=== PATIENT | male | born 1990 | race Hispanic/Latino ===

== ENCOUNTER 2019-01-18 10:35 | Emergency (ER) | payer SELFPAY ==
--- NOTE | 2019-01-18 11:25 | RAD ---
Radiograph left first digit 3 views: HISTORY: Laceration injury to left thumb FINDINGS: There is a soft tissue defect distal to the distal tuft. There is no fracture or dislocation. IMPRESSION: 1. Acute, traumatic soft tissue injury at distal tip of left first digit. 2. No osseous abnormality.
[2019-01-18] MEDS ORDERED: Lidocaine 1% (PF) 30 ML VIAL ONE (12:12)
[2019-01-18] MEDS ORDERED: Bupivacaine 0.5% 10 ML VIAL ONE (12:16)
[2019-01-18] MEDS ORDERED: Adacel (T-DAP) 0.5 ML SYRINGE ONE (12:42)
[2019-01-18] MEDS ORDERED: HYDROcodone/Acetaminophen 7.5/325 mg Tablet ONE (12:42)
== END 2019-01-18 13:59 | disposition home or self-care (01) ==
LOC: ERS 10:35
DX: S68.022A Partial traumatic metacarpophalangeal amputation of left thumb, initial encounter (principal); Z23 Encounter for immunization; F17.210 Nicotine dependence, cigarettes, uncomplicated; E03.9 Hypothyroidism, unspecified; W26.0XXA Contact with knife, initial encounter
CPT/HCPCS: 90471; 90715; J2001; J3490

== ENCOUNTER 2019-11-15 10:01 | Outpatient (CLI) | payer OTHER ==
--- NOTE | 2019-11-15 11:11 | RAD ---
LUMBAR SPINE 3 VIEWS: HISTORY: M54.3, sciatica. M54.5, low back pain. COMPARISON: None. FINDINGS: There is moderate degenerative disk space height loss at L5-S1 disk-osteophyte complex and 2 mm retro listhesis. No acute fracture. Moderate facet arthropathy at L5-S1. No abnormal translation with flexion or extension. IMPRESSION: Degenerative change at L5-S1 without abnormal translation with flexion or extension. POS: HOME
--- NOTE | 2019-11-15 11:25 | MRI ---
MRI LUMBAR SPINE: DATE: 11/15/2019. PROVIDED CLINICAL HISTORY: Low back pain and left-sided radiculopathy. FINDINGS: Five lumbar vertebral bodies are assumed. Lumbar alignment appears normal. Vertebral body heights a ppear preserved. Intervertebral disk space heights appear preserved. No focal concerning regional m arrow signal abnormality. The conus medullaris is normal in signal and terminates at an appropriate level. The visualized extraspinal soft tissues appear unremarkable. At L-2, there is no significant central canal or foraminal narrowing apparent. At L2-3, there is no significant central canal or foraminal narrowing apparent. At L3-4, there is no significant central canal or foraminal narrowing apparent. At L4-5, there is mild bilateral facet arthritis without significant central canal or foraminal narro wing apparent. At L5-S1, there is a central disk herniation which approximates and potentially displaces mildly shayna ersing the left L1 nerve root. There is mild flattening of the left ventral thecal sac. This is sup erimposed upon a broad-based disk bulge and accompanying osteophytes, which produce at least moderate left and mild right foraminal narrowing. There is displacement of the exited right L5 nerve root in its lateral region due to disk bulge. IMPRESSION: Disk and facet degenerative change at L5-S1 as described. POS: [facility]
== END 2019-11-15 10:02 | disposition home or self-care (01) ==
LOC: TBSIIMAG 10:01
PROVIDERS: ATTEND Neurological Surgery
DX: M54.30 Sciatica, unspecified side (principal); M54.5 Low back pain; M47.817 Spondylosis without myelopathy or radiculopathy, lumbosacral region
CPT/HCPCS: 72100; 72148

== ENCOUNTER 2021-04-01 12:52 | Outpatient (CLI) | payer OTHER | END 2021-04-01 12:53 | disposition home or self-care (01) | LOC: TBSIIMAG 12:52 | PROVIDERS: ATTEND Neurological Surgery | DX: M54.5 Low back pain (principal); M51.37 Other intervertebral disc degeneration, lumbosacral region; M47.817 Spondylosis without myelopathy or radiculopathy, lumbosacral region | CPT/HCPCS: 72100; 72148 ==

== ENCOUNTER 2021-06-16 17:28 | Emergency (ER) | payer SELFPAY ==
[2021-06-16] MEDS ORDERED: Lidocaine Viscous Sol 2% 15 ml UD Cup ONE (17:57)
[2021-06-16] MEDS ORDERED: Mag-Al 1200 mg/1200 mg/30 ML UDCUP ONE (17:57)
[2021-06-16] MEDS ORDERED: Ondansetron PF 4 MG/2 ML Vial ONE (17:57)
[2021-06-16 18:25] LABS: #Lymphocytes 0.6 thou/uL (1.20-3.40); #Monocytes 0.3 thou/uL (0.11-0.59); #Neutrophils 9.6 thou/uL (1.40-6.50); %Basophils 0.1 % (0.0-1.0); %Eosinophils 0.2 % (0.0-10.0); %Monocytes 3.3 % (0.0-10.0); %Neutrophils 90.4 % (42.0-75.0); Mean Corpuscular Hemoglobin 34.1 pg (27.0-31.0); Mean Corpuscular Volume 97.3 fL (78.0-98.0); Mean Platelet Volume 6.9 fL (7.4-10.4); Platelet Count 252 thou/uL (130-400); RBC Distribution Width 11.6 % (11.5-14.5); Red Blood Cell (RBC) Count 5.87 mill/uL (4.70-6.10); White Blood Cell (WBC) Count 10.6 thou/uL (4.8-10.8)
[2021-06-16 18:44] LABS: ALT (SGPT) 26 U/L (8-55); AST (SGOT) 25 U/L (5-34); Albumin 5.6 g/dL (3.5-5.0); Alkaline Phosphatase 120 U/L (40-110); Anion Gap 21 mmol/L (10-20); BUN (Urea Nitrogen) 16 mg/dL (8.9-20.6); Bilirubin, Total 0.9 mg/dL (0.2-1.2); Calc. Creatinine Clearance 0 mL/min (70-130); Calcium 11.3 mg/dL (7.8-10.44); Carbon Dioxide 26 mmol/L (22-29); Chloride 94 mmol/L (98-107); Globulin 4.4 g/dL (2.4-3.5); Glucose 142 mg/dL (70-105); Lipase 9 U/L (8-78); Potassium 4.2 mmol/L (3.5-5.1); Sodium 137 mmol/L (136-145)
[2021-06-16] MEDS ORDERED: Haloperidol Lactate 5 MG/ML VIAL ONE (19:06)
[2021-06-16] MEDS ORDERED: diphenhydrAMINE 50 MG/ML VIAL ONE (19:23)
== END 2021-06-16 20:36 | disposition home or self-care (01) ==
LOC: ERS 17:28
DX: K29.20 Alcoholic gastritis without bleeding (principal); R11.10 Vomiting, unspecified; E03.9 Hypothyroidism, unspecified; F17.210 Nicotine dependence, cigarettes, uncomplicated
CPT/HCPCS: 80053; 83690; 85025; 96374; 96375; J1200; J1630; J2405

== ENCOUNTER 2021-09-07 17:54 | Emergency (ER) | payer SELFPAY ==
[2021-09-07] MEDS ORDERED: Mag-Al 1200 mg/1200 mg/30 ML UDCUP ONE (18:17)
[2021-09-07] MEDS ORDERED: Lidocaine Viscous Sol 2% 15 ml UD Cup ONE (18:17)
[2021-09-07] MEDS ORDERED: Pantoprazole 40 MG VIAL ONE ×2 (18:17→18:35)
[2021-09-07] MEDS ORDERED: Haloperidol Lactate 5 MG/ML VIAL ONE (18:17)
[2021-09-07 18:44] LABS: #Basophils 0.1 thou/uL (0.0-0.2); #Lymphocytes 1.1 thou/uL (1.20-3.40); #Monocytes 0.6 thou/uL (0.11-0.59); #Neutrophils 8.8 thou/uL (1.40-6.50); %Basophils 0.6 % (0.0-1.0); %Eosinophils 0.2 % (0.0-10.0); %Lymphocytes 10.4 % (21.0-51.0); %Monocytes 5.5 % (0.0-10.0); %Neutrophils 83.4 % (42.0-75.0); Hemoglobin 17.3 g/dL (14.0-18.0); Mean Corpuscular HGB CONC 33.2 g/dL (32.0-36.0); Mean Corpuscular Hemoglobin 33.1 pg (27.0-31.0); Mean Corpuscular Volume 99.8 fL (78.0-98.0); Platelet Count 250 thou/uL (130-400); Red Blood Cell (RBC) Count 5.22 mill/uL (4.70-6.10); White Blood Cell (WBC) Count 10.5 thou/uL (4.8-10.8)
[2021-09-07 18:57] LABS: ALT (SGPT) 27 U/L (8-55); AST (SGOT) 25 U/L (5-34); Albumin 5.6 g/dL (3.5-5.0); Alkaline Phosphatase 96 U/L (40-110); Anion Gap 17 mmol/L (10-20); BUN (Urea Nitrogen) 16 mg/dL (8.9-20.6); Bilirubin, Total 0.9 mg/dL (0.2-1.2); CK (CPK) 122 U/L (30-200); Calc. Creatinine Clearance 0 mL/min (70-130); Calcium 10.7 mg/dL (7.8-10.44); Carbon Dioxide 28 mmol/L (22-29); Chloride 104 mmol/L (98-107); Globulin 3.2 g/dL (2.4-3.5); Glucose 137 mg/dL (70-105); Lipase Less than 4 U/L (8-78); Magnesium 2.2 mg/dL (1.6-2.6); Potassium 3.8 mmol/L (3.5-5.1); Protein, Total 8.8 g/dL (6.0-8.3); Sodium 145 mmol/L (136-145)
== END 2021-09-07 20:51 | disposition home or self-care (01) ==
LOC: ERS 17:54
DX: R11.2 Nausea with vomiting, unspecified (principal); R10.816 Epigastric abdominal tenderness; E03.9 Hypothyroidism, unspecified; F17.210 Nicotine dependence, cigarettes, uncomplicated; Z79.899 Other long term (current) drug therapy
CPT/HCPCS: 36415; 80053; 82550; 83690; 83735; 84484; 85025; 96374; 96375; C9113; J1630

== ENCOUNTER 2023-07-31 08:06 | Emergency (ER) | payer OTHER, SELFPAY ==
[2023-07-31] MEDS ORDERED: Ondansetron PF 4 MG/2 ML Vial ONE (08:19)
[2023-07-31] MEDS ORDERED: Pantoprazole 40 MG VIAL ONE (08:20)
[2023-07-31 08:55] LABS: #Basophils 0.1 thou/uL (0.0-0.2); #Eosinphils 0.4 thou/uL (0.0-0.7); #Monocytes 1.1 thou/uL (0.11-0.59); #Neutrophils 10.6 thou/uL (1.40-6.50); %Basophils 0.6 % (0.0-1.0); %Eosinophils 2.6 % (0.0-10.0); %Lymphocytes 14.9 % (21.0-51.0); %Monocytes 7.5 % (0.0-10.0); %Neutrophils 73.6 % (42.0-75.0); Hematocrit 54.5 % (42.0-52.0); Hemoglobin 18.9 g/dL (14.0-18.0); Mean Corpuscular HGB CONC 34.7 g/dL (32.0-36.0); Mean Corpuscular Volume 95.1 fl (78.0-98.0); Mean Platelet Volume 8.7 fL (7.4-10.4); Platelet Count 346 10x3/uL (130-400); RBC Distribution Width 12.9 % (11.5-14.5); Red Blood Cell (RBC) Count 5.73 mill/uL (4.70-6.10); White Blood Cell (WBC) Count 14.3 10x3/uL (4.8-10.8)
[2023-07-31] MEDS ORDERED: Haloperidol Lactate 5 MG/ML VIAL ONE ×2 (09:20→10:18)
[2023-07-31 09:33] LABS: ALT (SGPT) 14 U/L (8-55); AST (SGOT) 17 U/L (5-34); Albumin 5.2 g/dL (3.5-5.0); Alkaline Phosphatase 113 U/L (40-110); Anion Gap 20 mmol/L (10-20); BUN (Urea Nitrogen) 14 mg/dL (8.9-20.6); Bilirubin, Total 0.7 mg/dL (0.2-1.2); Calc. Creatinine Clearance 0 mL/min (70-130); Calcium 10.5 mg/dL (7.8-10.44); Carbon Dioxide 27 mmol/L (22-29); Chloride 95 mmol/L (98-107); Estimated GFR 102; Globulin 3.9 g/dL (2.4-3.5); Glucose 166 mg/dL (70-105); Lipase 11 U/L (8-78); Potassium 3.2 mmol/L (3.5-5.1); Protein, Total 9.1 g/dL (6.0-8.3); Sodium 139 mmol/L (136-145)
[2023-07-31 10:01] LABS: Bacteria/HPF None Seen HPF (None Seen); Bilirubin Negative (Negative); Blood, Urine 1+ (Negative); CAUTI Indications for Culture Pelvic or flank pain; Clarity Clear (Clear); Glucose, Urine (Dipstick) 50 mg/dL (Negative); Ketone, Urine 40 mg/dL (Negative); Leukocyte Negative Leu/uL (Negative); Nitrite Negative (Negative); Protein, Urine (Dipstick) 100 mg/dL (Neg-Trace); RBC/HPF 0-3 HPF (0-3); Specific Gravity, Urine 1.027 (1.002-1.036); Squamous Epithelial None Seen HPF (0-3); WBC/HPF 0-3 HPF (0-3)
[2023-07-31 10:04] LABS: Urine Culture Reflex No No
[2023-07-31 10:37] LABS: Magnesium 2.2 mg/dL (1.6-2.6)
[2023-07-31] MEDS ORDERED: Potassium Chloride 20 MEQ TAB ONE (11:28)
[2023-07-31] MEDS ORDERED: Iopamidol 370 76% 100 ML VIAL ONE (12:32)
== END 2023-07-31 11:59 | disposition home or self-care (01) ==
LOC: ERS 08:06
DX: R11.2 Nausea with vomiting, unspecified (principal); R10.9 Unspecified abdominal pain; E03.9 Hypothyroidism, unspecified; F17.210 Nicotine dependence, cigarettes, uncomplicated; Z79.899 Other long term (current) drug therapy
CPT/HCPCS: 74177; 80053; 81001; 83690; 83735; 84443; 85025; 93005; 96361; 96372; 96374; 96375; C9113; J1630; J2405; Q9967